=== PATIENT | female | born 1995 | race Caucasian/White ===

== ENCOUNTER 2020-08-09 21:13 | Inpatient (IN) ==
[2020-08-09 21:44] LABS: Appearance Urine Clear (Clear); Bilirubin Urine Negative (Negative); Blood Urine Negative (Negative); Color Urine Yellow; Glucose Urine UA Negative (Negative); Ketones Urine Trace (Negative); Leukocyte Esterase Urine Negative (Negative); Nitrite Urine Positive (Negative); Protein Urine Negative (Negative); Specific Gravity Urine 1.015 (1.000-1.030); Urobilinogen Urine Negative (Negative)
[2020-08-09 21:52] LABS: RBC Urine 0-4 /hpf (0-4)
[2020-08-09 21:53] LABS: Bacteria Urine 3+ (Negative)
[2020-08-09 21:54] LABS: Basophils # (auto) 0.04 K/uL (0-0.2); Basophils % (auto) 0.3 %; Eosinophils # (auto) 0.22 K/uL (0-0.5); Eosinophils % (auto) 1.6 %; Hematocrit (blood only) 40.3 % (37-47); Hemoglobin 13.5 g/dL (12.0-16.0); Immature Granulocytes # (auto) 0.02 K/uL (0.00-0.02); Immature Granulocytes % (auto) 0.1 %; Lymphocytes # (auto) 3.59 K/uL (1.2-3.4); Lymphocytes % (auto) 25.5 %; Mean Corpuscular Hgb Conc 33.5 g/dL (32-36); Mean Corpuscular Volume 86.7 fL (80-100); Mean Platelet Volume 9.9 fL (7.4-10.4); Monocytes # (auto) 0.72 K/uL (0.11-0.59); Monocytes % (auto) 5.1 %; Neutrophils # (auto) 9.47 K/uL (1.4-6.5); Neutrophils % (auto) 67.4 %; Platelet Count 472 K/uL (130-400); RDW Coefficient of Variation 13.6 % (11.5-14.5); RDW Standard Deviation 43.1 fL (36.4-46.3); Red Blood Count 4.65 M/uL (4.2-5.4); White Blood Count 14.06 K/uL (4.8-10.8)
[2020-08-09 22:10] LABS: Amphetamines+Metham, Urine Pos (Neg); Barbiturates, Urine Neg (Neg); Benzodiazepine, Urine Neg (Neg); Cocaine, Urine Neg (Neg); MDMA (Ecstacy), Urine Neg (Neg); Methadone, Urine Neg (Neg); Opiate, Urine Neg (Neg); Phencyclidine, Urine Neg (Neg)
[2020-08-09 22:12] LABS: Albumin Level 3.8 gm/dl (3.4-5.0); BUN Creatinine Ratio 8.2 (10-20); Calcium 9.7 mg/dl (8.5-10.1); Est GFR (African American) 127.2 ml/min; Est GFR (Non-African American) 109.8 ml/min; Potassium 3.9 mmol/L (3.5-5.1)
[2020-08-09] MEDS ORDERED: cephALEXin 250 MG CAP PO ONE (22:16)
[2020-08-09 22:23] LABS: Albumin Globulin Ratio 0.9 (0.9-2); Bilirubin,Total 0.2 mg/dl (0.2-1); Globulin 4.2 gm/dl (2.5-4.0); Thyroid Stimulating Hormone 1.21 uIu/ml (0.300-4.500)
[2020-08-09 22:28] LABS: Acetaminophen < 2 ug/ml (10-30); Salicylate 3.6 mg/dl (2.8-20)
--- NOTE | 2020-08-09 22:33 | Emergency Department Note ---
Impression & Plan Suicidal ideation, Medication overdose, UTI (urinary tract infection) ED Provider Note NAME: DAVID LEIVA AGE: 25 SEX: F : 1995 ARRIVES VIA: Ambulance INFORMANT: [Patient] ED PROVIDER(S): [Rajeev Zaldivar MD] CHIEF COMPLAINT: Intentional overdose HISTORY OF PRESENT ILLNESS: The patient is a 25-year-old female who presents voluntarily after an intentional Risperdal overdose. The patient is on Risperdal for psychosis. She was trying to hurt herself by a taking extra today. She states that she thinks she only took 1 extra tablet. No alcohol or other meds ingested. It made her feel somewhat dizzy and sort of out of it. She has noticed some urinary kyra quency as of late. No burning to urinate. No nausea or vomiting. No chest pain or shortness of breath. The patient states that she feels like she has been more depressed lately. She states that she started using meth again. She basically relapsed. She states that she just found out in her biologic daughter was adopted. She also states she just quit her job. All these stressors have led to her presentation today. She states that she has self cut herself in the past but has never overdosed on medications before. She has had a previous psychiatric hospitalization in [place]. REVIEW OF SYSTEMS: See HPI for pertinent positives and negatives. A total of ten systems were reviewed and were otherwise negative. PMHx/PSHx: See Below SOCIAL HISTORY: See Below. PHYSICAL EXAM: GENERAL: Patient is in no acute distress. HEENT: No acute trauma, normocephalic atraumatic, mucous membranes moist, no nasal congestion, no scleral icterus. NECK: No stridor, no adenopathy, no meningismus, trachea is midline. LUNGS: Clear to auscultation bilaterally, no wheeze, no rhonchi, breath sounds equal. HEART: Mildly tachycardic, regular rhythm, no murmurs. ABDOMEN: Soft, nontender, bowel sounds positive, no hernias, no peritonitis. EXTREMITIES: No cyanosis or edema, full range of motion of all the joints without pain or difficulty, no signs for acute trauma. NEUROLOGIC: Oriented x 3, no acute motor or sensory deficits, no focal weakness. SKIN: No jaundice, no diaphoresis. Psychiatric: Cooperative, voluntary, admits to intentional self-harm today by taking extra Risperdal. DIFFERENTIAL DIAGNOSIS: Mood disorder, infection, hypoglycemia, overdose, electrolyte abnormalities, depression, psychosis, suicidality, cardiac sources, intracerebral event, toxicologic etiology, trauma, neurologic event, as well as other pathologies. EMERGENCY DEPARTMENT COURSE/PROCEDURES: ECG: Indication was overdose and tachycardia. The ECG shows a normal sinus rhythm with a rate of 92. There is no ST elevation, no PVCs. The QTc is 457. MEDICAL DECISION MAKING: There is a mild leukocytosis, this could be consistent with the stress of her situation or possibly infection. There is a normal hemoglobin. Platelet count mildly elevated. No significant electrolyte abnormality or kidney failure. No worrisome liver enzyme elevation. The patient appears to be in a euthyroid state. testing returned negative. Urinalysis does suggest infection. Urine tox showed amphetamines and marijuana. Alcohol, aspirin and Tylenol levels were basically undetectable. Covid testing returned negative. ECG shows a sinus rhythm, no acute ischemia. On exam, the patient was voluntary. She did admit to suicidal ideation. The patient was given oral Keflex for her UTI. This medication can be continued 3 times a day for a week. The UTI should not limit her psychiatric hospitalization. The patient was felt medically clear. She was seen by psychiatry case management. She has been accepted to our hospital's psychiatric facility voluntarily. She is going to be admitted to 3 . The patient has been cooperative during her ED stay, she has been resting comfortably. No behavioral issues. Past Med/Surg History Medical History Deliberate self-cutting Depression Psychosis Social History Smoking Status: Unknown if ever smoked marital status: Single current occupational status: employed Feels Safe at Home: Yes Allergies Allergies Allergy/AdvReac Type Severity Reaction Status Date / Time No Known Allergies Allergy Verified 08/09/20 21:49 Home Meds Home Medications Medication Instructions Recorded Confirmed risperidone [Risperdal] 1 mg PO Q6 PRN 08/09/20 08/09/20 Results & Data (ED) Vital Signs Vital Signs - 24 hr 08/09/20 21:15 08/09/20 21:26 08/10/20 00:26 Temperature 36.9 C Temperature Source Skin Pulse Rate 109 H Pulse Rate [Right Radial] 74 Pulse Rhythm [Right Radial] Regular Pulse Strength [Right Radial] Normal Respiratory Rate 16 16 Respiratory Effort / Characteristics Non-Labored Non-Labored Spontaneous Respiratory Depth Normal Normal Respiratory Pattern Regular Blood Pressure 142/98 H Blood Pressure [Left Arm] 142/98 H Blood Pressure Mean 112 Blood Pressure Mean [Left Arm] 112 Blood Pressure Position [Left Arm] Sitting Pulse Oximetry 97 99 Oxygen Delivery Method Room Air Room Air Room Air Sepsis Recent Fever Within 48 Hours No Sepsis New/Unexplained Change in Mental Status N/A Sepsis Action Taken by Nursing No Action Required Home Medications Current Medication List: was personally reviewed by me Laboratory Data Attestation: I reviewed the patient's lab results. Result diagrams: 08/09/20 21:39 08/09/20 21:39 Lab Results 08/09/20 08/09/20 08/09/20 Range/Units 21:32 21:32 21:32 WBC (4.8-10.8) K/uL RBC (4.2-5.4) M/uL Hgb (12.0-16.0) g/dL Hct (37-47) % MCV (80-100) fL MCH (25-34) pg MCHC (32-36) g/dL RDW Std Deviation (36.4-46.3) fL RDW Coeff of Ismael (11.5-14.5) % Plt Count (130-400) K/uL MPV (7.4-10.4) fL Immature Gran % (Auto) % Neut % (Auto) % Lymph % (Auto) % [place] % (Auto) % Eos % (Auto) % Baso % (Auto) % Neut # (Auto) (1.4-6.5) K/uL Lymph # (Auto) (1.2-3.4) K/uL [place] # (Auto) (0.11-0.59) K/uL Eos # (Auto) (0-0.5) K/uL Baso # (Auto) (0-0.2) K/uL Immature Gran # (Auto) (0.00-0.02) K/uL Sodium (136-145) mmol/L Potassium (3.5-5.1) mmol/L Chloride (98-107) mmol/L Carbon Dioxide (21-32) mmol/L Anion Gap (3-11) BUN (7-18) mg/dl Creatinine (0.6-1.2) mg/dl Est Cr Clr Drug Dosing ml/min Est GFR ( Amer) ml/min Est GFR (Non-Af Amer) ml/min BUN/Creatinine Ratio (10-20) Glucose (70-99) mg/dl Calcium (8.5-10.1) mg/dl Total Bilirubin (0.2-1) mg/dl AST (15-37) U/L ALT (12-78) U/L Alkaline Phosphatase (45-117) U/L Total Protein (6.4-8.2) gm/dl Albumin (3.4-5.0) gm/dl Globulin (2.5-4.0) gm/dl Albumin/Globulin Ratio (0.9-2) TSH (0.300-4.500) uIu/ml Urine Color Yellow Urine Appearance Clear (Clear) Urine pH 7.0 (4.5-7.5) Ur Specific [place] 1.015 (1.000-1.030) Urine Protein Negative (Negative) Urine Glucose (UA) Negative (Negative) Urine Ketones Trace H (Negative) Urine Blood Negative (Negative) Urine Nitrite Positive A (Negative) Urine Bilirubin Negative (Negative) Urine Urobilinogen Negative (Negative) Ur Leukocyte Esterase Negative (Negative) Urine RBC 0-4 (0-4) /hpf Urine WBC 5-10 H (0-5) /hpf Ur Epithelial Cells 5-10 H (0-5) /lpf Urine Bacteria 3+ H (Negative) POC Ur Test NEG (NEG) Salicylates (2.8-20) mg/dl Urine Opiates Screen Neg (Neg) Ur Methadone, Qual Neg (Neg) Acetaminophen (10-30) ug/ml Urine Barbiturates Neg (Neg) Ur Phencyclidine (PCP) Neg (Neg) U Amphetamin/Meth Scrn Pos H (Neg) MDMA (Ecstasy) Screen Neg (Neg) U Benzodiazepines Scrn Neg (Neg) Ur Cocaine Metabolite Neg (Neg) U Marijuana (THC) Screen Pos H (Neg) Ethyl Alcohol mg/dL (0-3) mg/dl COVID-19 Eval Order SARS-CoV-2, RNA, NAAT (NEGATIVE) 08/09/20 08/09/20 08/09/20 Range/Units 21:39 21:39 21:39 WBC 14.06 H (4.8-10.8) K/uL RBC 4.65 (4.2-5.4) M/uL Hgb 13.5 (12.0-16.0) g/dL Hct 40.3 (37-47) % MCV 86.7 (80-100) fL MCH 29.0 (25-34) pg MCHC 33.5 (32-36) g/dL RDW Std Deviation 43.1 (36.4-46.3) fL RDW Coeff of Ismael 13.6 (11.5-14.5) % Plt Count 472 H (130-400) K/uL MPV 9.9 (7.4-10.4) fL Immature Gran % (Auto) 0.1 % Neut % (Auto) 67.4 % Lymph % (Auto) 25.5 % [place] % (Auto) 5.1 % Eos % (Auto) 1.6 % Baso % (Auto) 0.3 % Neut # (Auto) 9.47 H (1.4-6.5) K/uL Lymph # (Auto) 3.59 H (1.2-3.4) K/uL [place] # (Auto) 0.72 H (0.11-0.59) K/uL Eos # (Auto) 0.22 (0-0.5) K/uL Baso # (Auto) 0.04 (0-0.2) K/uL Immature Gran # (Auto) 0.02 (0.00-0.02) K/uL Sodium 139 (136-145) mmol/L Potassium 3.9 (3.5-5.1) mmol/L Chloride 106 (98-107) mmol/L Carbon Dioxide 28 (21-32) mmol/L Anion Gap 5.0 (3-11) BUN 6 L (7-18) mg/dl Creatinine 0.76 (0.6-1.2) mg/dl Est Cr Clr Drug Dosing 118.0 ml/min Est GFR ( Amer) 127.2 ml/min Est GFR (Non-Af Amer) 109.8 ml/min BUN/Creatinine Ratio 8.2 L (10-20) Glucose 96 (70-99) mg/dl Calcium 9.7 (8.5-10.1) mg/dl Total Bilirubin 0.2 (0.2-1) mg/dl AST 8 L (15-37) U/L ALT 23 (12-78) U/L Alkaline Phosphatase 94 (45-117) U/L Total Protein 8.0 (6.4-8.2) gm/dl Albumin 3.8 (3.4-5.0) gm/dl Globulin 4.2 H (2.5-4.0) gm/dl Albumin/Globulin Ratio 0.9 (0.9-2) TSH 1.210 (0.300-4.500) uIu/ml Urine Color Urine Appearance (Clear) Urine pH (4.5-7.5) Ur Specific [place] (1.000-1.030) Urine Protein (Negative) Urine Glucose (UA) (Negative) Urine Ketones (Negative) Urine Blood (Negative) Urine Nitrite (Negative) Urine Bilirubin (Negative) Urine Urobilinogen (Negative) Ur Leukocyte Esterase (Negative) Urine RBC (0-4) /hpf Urine WBC (0-5) /hpf Ur Epithelial Cells (0-5) /lpf Urine Bacteria (Negative) POC Ur Test (NEG) Salicylates 3.6 (2.8-20) mg/dl Urine Opiates Screen (Neg) Ur Methadone, Qual (Neg) Acetaminophen < 2 L (10-30) ug/ml Urine Barbiturates (Neg) Ur Phencyclidine (PCP) (Neg) U Amphetamin/Meth Scrn (Neg) MDMA (Ecstasy) Screen (Neg) U Benzodiazepines Scrn (Neg) Ur Cocaine Metabolite (Neg) U Marijuana (THC) Screen (Neg) Ethyl Alcohol mg/dL (0-3) mg/dl COVID-19 Eval Order SARS-CoV-2, RNA, NAAT (NEGATIVE) 08/09/20 08/09/20 08/09/20 Range/Units 21:39 21:40 21:40 WBC (4.8-10.8) K/uL RBC (4.2-5.4) M/uL Hgb (12.0-16.0) g/dL Hct (37-47) % MCV (80-100) fL MCH (25-34) pg MCHC (32-36) g/dL RDW Std Deviation (36.4-46.3) fL RDW Coeff of Ismael (11.5-14.5) % Plt Count (130-400) K/uL MPV (7.4-10.4) fL Immature Gran % (Auto) % Neut % (Auto) % Lymph % (Auto) % [place] % (Auto) % Eos % (Auto) % Baso % (Auto) % Neut # (Auto) (1.4-6.5) K/uL Lymph # (Auto) (1.2-3.4) K/uL [place] # (Auto) (0.11-0.59) K/uL Eos # (Auto) (0-0.5) K/uL Baso # (Auto) (0-0.2) K/uL Immature Gran # (Auto) (0.00-0.02) K/uL Sodium (136-145) mmol/L Potassium (3.5-5.1) mmol/L Chloride (98-107) mmol/L Carbon Dioxide (21-32) mmol/L Anion Gap (3-11) BUN (7-18) mg/dl Creatinine (0.6-1.2) mg/dl Est Cr Clr Drug Dosing ml/min Est GFR ( Amer) ml/min Est GFR (Non-Af Amer) ml/min BUN/Creatinine Ratio (10-20) Glucose (70-99) mg/dl Calcium (8.5-10.1) mg/dl Total Bilirubin (0.2-1) mg/dl AST (15-37) U/L ALT (12-78) U/L Alkaline Phosphatase (45-117) U/L Total Protein (6.4-8.2) gm/dl Albumin (3.4-5.0) gm/dl Globulin (2.5-4.0) gm/dl Albumin/Globulin Ratio (0.9-2) TSH (0.300-4.500) uIu/ml Urine Color Urine Appearance (Clear) Urine pH (4.5-7.5) Ur Specific [place] (1.000-1.030) Urine Protein (Negative) Urine Glucose (UA) (Negative) Urine Ketones (Negative) Urine Blood (Negative) Urine Nitrite (Negative) Urine Bilirubin (Negative) Urine Urobilinogen (Negative) Ur Leukocyte Esterase (Negative) Urine RBC (0-4) /hpf Urine WBC (0-5) /hpf Ur Epithelial Cells (0-5) /lpf Urine Bacteria (Negative) POC Ur Test (NEG) Salicylates (2.8-20) mg/dl Urine Opiates Screen (Neg) Ur Methadone, Qual (Neg) Acetaminophen (10-30) ug/ml Urine Barbiturates (Neg) Ur Phencyclidine (PCP) (Neg) U Amphetamin/Meth Scrn (Neg) MDMA (Ecstasy) Screen (Neg) U Benzodiazepines Scrn (Neg) Ur Cocaine Metabolite (Neg) U Marijuana (THC) Screen (Neg) Ethyl Alcohol mg/dL < 3.0 (0-3) mg/dl COVID-19 Eval Order Covid19 [facility] SARS-CoV-2, RNA, NAAT NEGATIVE (NEGATIVE) Administered Medications Discontinued Medications Cephalexin HCl (Cephalexin 250 Mg Cap) 500 mg PO NOW ONE Stop: 08/09/20 22:17 Last Admin: 08/09/20 22:35 Dose: 500 mg Documented by: [id number] Discharge Plan Visit Data Chief Complaint: Overdose (Intentional) Stated Complaint: DIZZINESS, EDEMA IN LEGS ED Provider: Rajeev Zaldivar Discharge Problem: Suicidal ideation, Medication overdose, UTI (urinary tract infection) Patient Disposition: Admitted As Inpatient Condition: Good Forms Stand Alone Forms: [facility], Suicide Prevention Resources Prescriptions Prescriptions: No Action risperidone [Risperdal] 1 mg Tablet 1 mg PO Q6 PRN (Reason: Anxiety) RF: 0 Referrals Referrals: PCP,NO [Primary Care Provider] - Discharge Problem: Medication overdose Qualifiers: Encounter type: initial encounter Injury intent: intentional self-harm Qualified Code(s): T50.902A - Poisoning by unspecified drugs, medicaments and biological substances, intentional self-harm, initial encounter UTI (urinary tract infection) Qualifiers: Urinary tract infection type: acute cystitis Hematuria presence: without hematuria Qualified Code(s): N30.00 - Acute cystitis without hematuria
[2020-08-10] MEDS ORDERED: BISMUTH SUBSALICYLATE LIQD 236 ML PO PRN (01:54)
[2020-08-10] MEDS ORDERED: MAGNESIUM HYDROXIDE SUSP 30 ML UDC PO PRN (01:54)
[2020-08-10] MEDS ORDERED: ALUMINUM/MAGNESIUM SUSP 30 ML UDC PO PRN (01:54)
[2020-08-10] MEDS ORDERED: hydrOXYzine HCl 25 MG TAB PO PRN ×3 (01:54→13:11)
[2020-08-10] MEDS ORDERED: SODIUM CHLORIDE 0.65% NA SOLN 45 ML (OCEAN) PRN (01:54)
[2020-08-10] MEDS: ACETAMINOPHEN 325 MG TAB PO PRN (02:46)
[2020-08-10] MEDS: NICOTINE 21 MG/24 HR TDSY TD SCH (08:29)
--- NOTE | 2020-08-10 12:34 | History & Physical ---
Date of Service August 10, 2020 Impression / Recommendations Impression DAVID LEIVA is a 25-year-old F who currently lives in is currently homeless, with a significant history of methamphetamine abuse, cannabis use and depression, and was admitted on 08/10/20 01:11 on a 201 voluntary commitment for worsening depression with suicidal thoughts, anxiety significant panic as well as status post intentional overdose on Risperdal.. On review patient denies any associated suicide attempts. Current impression is mood disorder unspecified patient is probably stress secondary to multiple psychosocial stressors and consistent use of methamphetamine as well as cannabinoids. Patient also reports difficulty with sleep and patient reports that Lexapro helped her in the past. At this time the patient is admitted to the [address] [place] [address] mental health unit she is on every 15 minute checks behavior and suicide precautions included for safety the patient will participate in groups recreational milieu therapies will be offered additional in individual and family sessions as cl inically appropriate. (1) Suicidal ideation: Resolved patient denies suicidal ideation here on the unit. Present on Admission?: Yes (2) Major depression, recurrent: Unclear if patient has depression secondary to substance use but has a history of depression in the past and reports benefit from Lexapro we will restart Lexapro discussed benefits as well as risks and side effects of antidepressant such as serotonin reuptake inhibitors. We will start her milligrams of Lexapro daily Present on Admission?: Yes (3) Anxiety: She reported taking the Risperdal in response to significant panic attack which she had prior to admission patient reports a long history of anxiety but denies any panic attacks and severe as the one she had the other day". Will start Vistaril 25 mg as needed 3 times daily will have 50 mg at nighttime will avoid anything stronger given patient's history of addictions patient reports BuSpar in the past unclear if it will be beneficial at this time. Present on Admission?: Yes (4) Methamphetamine dependence, continuous: Patient has a significant history of methamphetamine use continues patient reports this is my favorite and I do not do enough" patient is open to going to rehab the patient's use history suggest problematic substance use brief intervention was offered and accepted intervention was greater than 5 minutes in length and included assessing patient's readiness to quit advised on how to reduce abstain and to set a specific goal for this hospitalization director social welfare with medical assistant instructor anticipating barriers to sobriety and problem solving solutions to those problems while arranging for referral to appropriate treatment. Present on Admission?: Yes Inventory Assets Strengths: verbal, open to treatment Needs: Rehab Risk Factors Assessment Male: No Do You Have Access To A Gun?: No Health Problems: No Mental Health Diagnoses: Yes Protective Factors Assessment Employed: No Good Rapport with Provider: Yes Psychiatric History Identifying Data DAVID LEIVA is a 25-year-old F who currently lives in is currently homeless, with a significant history of methamphetamine abuse, cannabis use and depression, and was admitted on 08/10/20 01:11 on a 201 voluntary commitment for worsening depression with suicidal thoughts, anxiety significant panic as well as status post intentional overdose on Risperdal.. Chief Complaint "I had a horrible panic attack I never want to have that kind of panic attack again". History of Present Illness The patient is a 25-year-old female who presents voluntarily after an intentional Risperdal overdose. The patient is on Risperdal for psychosis. She was trying to hurt herself by a taking extra today. She states that she thinks she only took 1 extra tablet. No alcohol or other meds ingested. It made her feel somewhat dizzy and sort of out of it. Patient reported immediately she took it regretting the episode. Patient admitted to property underwriter that it was an old prescription and the last time he had been prescribed Risperdal was in October 2019. She this was at the time she [facility]. Then she has not sought psychiatric services. Ported worsening anxiety in the past several months especially more intense in the past 2 weeks with her current situation of homelessness moving from one house to the other" patient decided to fill all prescription and was taking the medication as needed however she reported having a severe panic attack and intentionally took more than 1 pill to help with the panic attack. She then felt dizzy and out of sorts" Patient was interviewed by case management in the ED the following history noted below was obtained; Per Case Management ED Psych by Fransico Ramirez Met with the patient to complete MH Brief Assessment. The patient reports she recently moved in with her father after losing her job. The patient reports she took extra Risperdal (2 at a time instead of as prescribed) to try to sleep but I really didnt want to wake up. The patient reports she doesnt want to but doesnt want things to continue. The patient reports she had a really bad anxiety attack after finding out her daughter was adopted recently and her birthday is coming up in August. The patient reports she is a meth user (last used last night) and needs help for her mental health and addiction. The patient admits she was trying to hurt herself when she took her extra Risperdal. The patient reports she was inpatient in [place] and diagnosed with psychotic disorder, depression and anxiety, but she feels she has major depression. Medical clearance explained. When this property underwriter met with patient today she reported feeling depressed and hopeless, she denied active suicidal ideation in the hospital was not sure what she would do if she left. She reported ongoing use of methamphetamine and cannabis." I do not get as much as I can use" patient reported also being anxious to go back into rehab." I need to get stable and, my own place and my own car, I need a job" Patient denies hallucinations denies homicidal ideation no evidence of response to internal stimuli. Past Psychiatric History Previous Psych History: Multiple past psychiatric admissions including [facility] 2019 she also was admitted to [facility] in September 2019 Current Psychiatric Diagnosis: depression and anxiety Previous Psych Admissions: As noted above Do You Have Access To A Gun?: No History of Previous Suicide Attempt: No Past Medication Trials: Respiratory Lexapro trazodone Past Head Trauma/Neuro History History of Concussion/Seizure: No Allergies Allergy/AdvReac Type Severity Reaction Status Date / Time No Known Allergies Allergy Verified 08/09/20 21:49 Family History Family History of: Depression and Alcoholism/Drug Abuse Alcohol History Hx of Alcohol Use Over the Past 12 Months: Yes (occcasional, last use May 2020) AUDIT Total Score: 7 Smoking Use Have You Smoked or Used Tobacco Products in the Last 30 Days: Yes tobacco type: cigarettes Smoking Status: Current every day smoker Smoking packs per day: 1.5 Substance History Hx of Prescription Med Misuse Over the Past 12 Months: Yes (OD attempt on old script of Risperdal) Hx of Over the Counter Med Misuse Over the Past 12 Months: No Hx of Inhalent Misuse Over the Past 12 Months: No Hx of Organic Substance Use Over the Past 12 Months: Yes (MJ - "as much as I can, when I have money", used 08/09) Hx of Illegal Substances/Street Drug Use Over Past 12 Months: Yes (Meth - "mostly on the weekends, when I can afford it", used last 08/08) Problems as a Result of Past Substance Use: Loss of Family Support Personal History Living Arrangements: Homeless Highest Grade Completed: Did Not Graduate High School Employment Status: Unemployed Beliefs That Will Affect Care: None Current Legal Problems: No Patient History Medical History Deliberate self-cutting Depression Psychosis Social History Smoking Status: Current every day smoker Preferred Language: Chinese Communication Ability: Effective Php Mysql Web Developer Required: No Beliefs That Will Affect Care: None marital status: Single current occupational status: employed Feels Safe at Home: Yes Assistive Devices: None Review of Systems Review of Systems: All systems reviewed & are unremarkable except as noted in Subjective Physical Exam Psychiatric: Orientation: alert, oriented x 3, oriented to person, oriented to place and cooperative Apperance: appropriately dressed Eye Contact: good eye contact Motor Behavior: steady gait and station Speech: normal rate/rhythm/volume of speech Affect: + anxious affect Mood: + anxious mood Thought Process: goal directed thought process and clear/coherent thought process; no flight of ideas Thought Content: not paranoid, no compulsions and no delusions Suicidal Thoughts: denies suicidal thoughts Homicidal Thoughts: denies homicidal thoughts Hallucinations: no auditory hallucinations and no visual hallucinations Cognition: recent memory grossly intact, remote memory grossly intact, attention grossly intact and language grossly intact Estimated Intelligence: consistent with education level Insight: + limited insight Judgement: + limited judgement Vital Signs (Past 24 Hours): Last Vital Signs Temp 36.5 C 08/10/20 06:44 Pulse 81 08/10/20 06:45 Resp 16 08/10/20 06:44 BP 120/86 08/10/20 06:45 Pulse Ox 99 08/10/20 01:57 Physical Examination: Physical exam was performed by Dr. Zaldivar in the ED on 08/09/2020. For the purpose of medical clearance accepting the physical exam as correct and adequate for the purpose of the inpatient physical exam. Results & Data (U) Laboratory Results Laboratory Results - last 24 hr 08/09/20 08/09/20 08/09/20 21:32 21:32 21:32 WBC RBC Hgb Hct MCV MCH MCHC RDW Std Deviation RDW Coeff of Ismael Plt Count MPV Immature Gran % (Auto) Neut % (Auto) Lymph % (Auto) Jack % (Auto) Eos % (Auto) Baso % (Auto) Neut # (Auto) Lymph # (Auto) Jack # (Auto) Eos # (Auto) Baso # (Auto) Immature Gran # (Auto) Sodium Potassium Chloride Carbon Dioxide Anion Gap BUN Creatinine Est Cr Clr Drug Dosing Est GFR ( Amer) Est GFR (Non-Af Amer) BUN/Creatinine Ratio Glucose Calcium Total Bilirubin AST ALT Alkaline Phosphatase Total Protein Albumin Globulin Albumin/Globulin Ratio TSH Urine Color Yellow Urine Appearance Clear Urine pH 7.0 Ur Specific Floral 1.015 Urine Protein Negative Urine Glucose (UA) Negative Urine Ketones Trace H Urine Blood Negative Urine Nitrite Positive A Urine Bilirubin Negative Urine Urobilinogen Negative Ur Leukocyte Esterase Negative Urine RBC 0-4 Urine WBC 5-10 H Ur Epithelial Cells 5-10 H Urine Bacteria 3+ H POC Ur Test NEG Salicylates Urine Opiates Screen Neg Ur Methadone, Qual Neg Acetaminophen Urine Barbiturates Neg Ur Phencyclidine (PCP) Neg U Amphetamines Confirm U Amphetamin/Meth Scrn Pos H U Methamphetamin Confrm MDMA (Ecstasy) Screen Neg U Benzodiazepines Scrn Neg Ur Cocaine Metabolite Neg U Marijuana (THC) Screen Pos H U Marijuana THC Carboxy Drug Screen Comment Ethyl Alcohol mg/dL COVID-19 Eval Order SARS-CoV-2, RNA, NAAT 08/09/20 08/09/20 08/09/20 21:32 21:39 21:39 WBC 14.06 H RBC 4.65 Hgb 13.5 Hct 40.3 MCV 86.7 MCH 29.0 MCHC 33.5 RDW Std Deviation 43.1 RDW Coeff of Ismael 13.6 Plt Count 472 H MPV 9.9 Immature Gran % (Auto) 0.1 Neut % (Auto) 67.4 Lymph % (Auto) 25.5 Jack % (Auto) 5.1 Eos % (Auto) 1.6 Baso % (Auto) 0.3 Neut # (Auto) 9.47 H Lymph # (Auto) 3.59 H Jack # (Auto) 0.72 H Eos # (Auto) 0.22 Baso # (Auto) 0.04 Immature Gran # (Auto) 0.02 Sodium 139 Potassium 3.9 Chloride 106 Carbon Dioxide 28 Anion Gap 5.0 BUN 6 L Creatinine 0.76 Est Cr Clr Drug Dosing 118.0 Est GFR ( Amer) 127.2 Est GFR (Non-Af Amer) 109.8 BUN/Creatinine Ratio 8.2 L Glucose 96 Calcium 9.7 Total Bilirubin 0.2 AST 8 L ALT 23 Alkaline Phosphatase 94 Total Protein 8.0 Albumin 3.8 Globulin 4.2 H Albumin/Globulin Ratio 0.9 TSH 1.210 Urine Color Urine Appearance Urine pH Ur Specific Floral Urine Protein Urine Glucose (UA) Urine Ketones Urine Blood Urine Nitrite Urine Bilirubin Urine Urobilinogen Ur Leukocyte Esterase Urine RBC Urine WBC Ur Epithelial Cells Urine Bacteria POC Ur Test Salicylates Urine Opiates Screen Ur Methadone, Qual Acetaminophen Urine Barbiturates Ur Phencyclidine (PCP) U Amphetamines Confirm Pending U Amphetamin/Meth Scrn U Methamphetamin Confrm Pending MDMA (Ecstasy) Screen U Benzodiazepines Scrn Ur Cocaine Metabolite U Marijuana (THC) Screen U Marijuana THC Carboxy Pending Drug Screen Comment Pending Ethyl Alcohol mg/dL COVID-19 Eval Order SARS-CoV-2, RNA, NAAT 08/09/20 08/09/20 08/09/20 21:39 21:39 21:40 WBC RBC Hgb Hct MCV MCH MCHC RDW Std Deviation RDW Coeff of Ismael Plt Count MPV Immature Gran % (Auto) Neut % (Auto) Lymph % (Auto) Jack % (Auto) Eos % (Auto) Baso % (Auto) Neut # (Auto) Lymph # (Auto) Jack # (Auto) Eos # (Auto) Baso # (Auto) Immature Gran # (Auto) Sodium Potassium Chloride Carbon Dioxide Anion Gap BUN Creatinine Est Cr Clr Drug Dosing Est GFR ( Amer) Est GFR (Non-Af Amer) BUN/Creatinine Ratio Glucose Calcium Total Bilirubin AST ALT Alkaline Phosphatase Total Protein Albumin Globulin Albumin/Globulin Ratio TSH Urine Color Urine Appearance Urine pH Ur Specific Floral Urine Protein Urine Glucose (UA) Urine Ketones Urine Blood Urine Nitrite Urine Bilirubin Urine Urobilinogen Ur Leukocyte Esterase Urine RBC Urine WBC Ur Epithelial Cells Urine Bacteria POC Ur Test Salicylates 3.6 Urine Opiates Screen Ur Methadone, Qual Acetaminophen < 2 L Urine Barbiturates Ur Phencyclidine (PCP) U Amphetamines Confirm U Amphetamin/Meth Scrn U Methamphetamin Confrm MDMA (Ecstasy) Screen U Benzodiazepines Scrn Ur Cocaine Metabolite U Marijuana (THC) Screen U Marijuana THC Carboxy Drug Screen Comment Ethyl Alcohol mg/dL < 3.0 COVID-19 Eval [facility] SARS-CoV-2, RNA, NAAT 08/09/20 21:40 WBC RBC Hgb Hct MCV MCH MCHC RDW Std Deviation RDW Coeff of Ismael Plt Count MPV Immature Gran % (Auto) Neut % (Auto) Lymph % (Auto) Jack % (Auto) Eos % (Auto) Baso % (Auto) Neut # (Auto) Lymph # (Auto) Jack # (Auto) Eos # (Auto) Baso # (Auto) Immature Gran # (Auto) Sodium Potassium Chloride Carbon Dioxide Anion Gap BUN Creatinine Est Cr Clr Drug Dosing Est GFR ( Amer) Est GFR (Non-Af Amer) BUN/Creatinine Ratio Glucose Calcium Total Bilirubin AST ALT Alkaline Phosphatase Total Protein Albumin Globulin Albumin/Globulin Ratio TSH Urine Color Urine Appearance Urine pH Ur Specific Floral Urine Protein Urine Glucose (UA) Urine Ketones Urine Blood Urine Nitrite Urine Bilirubin Urine Urobilinogen Ur Leukocyte Esterase Urine RBC Urine WBC Ur Epithelial Cells Urine Bacteria POC Ur Test Salicylates Urine Opiates Screen Ur Methadone, Qual Acetaminophen Urine Barbiturates Ur Phencyclidine (PCP) U Amphetamines Confirm U Amphetamin/Meth Scrn U Methamphetamin Confrm MDMA (Ecstasy) Screen U Benzodiazepines Scrn Ur Cocaine Metabolite U Marijuana (THC) Screen U Marijuana THC Carboxy Drug Screen Comment Ethyl Alcohol mg/dL COVID-19 Eval Order SARS-CoV-2, RNA, NAAT NEGATIVE Current Inpatient Medications Current Inpatient Medications: Current Inpatient Medications Acetaminophen (Acetaminophen 325 Mg Tab) 650 mg PO Q4H PRN PRN Reason: Headache or Minor Fever Stop: 09/09/20 01:53 Last Admin: 08/10/20 02:46 Dose: 650 mg Documented by: Al Hydrox/Mg Hydrox/Simethicone (Aluminum/Magnesium Susp 30 Ml Udc) 30 ml PO Q4H PRN PRN Reason: GI Upset Stop: 09/09/20 01:53 Bismuth Subsalicylate (Bismuth Subsalicylate Liqd 236 Ml) 15 ml PO PRN PRN PRN Reason: Loose Stool Stop: 09/09/20 01:53 Hydroxyzine HCl (Hydroxyzine Hcl 25 Mg Tab) 50 mg PO HSZ PRN PRN Reason: Insomnia Stop: 09/09/20 01:53 Last Admin: 08/10/20 02:46 Dose: 50 mg Documented by: Hydroxyzine HCl (Hydroxyzine Hcl 25 Mg Tab) 25 mg PO Q4H PRN PRN Reason: Anxiety Stop: 09/09/20 01:53 Magnesium Hydroxide (Magnesium Hydroxide Susp 30 Ml Udc) 30 ml PO DAILY PRN PRN Reason: Constipation Stop: 09/09/20 01:53 Miscellaneous (Remove Nicoderm Patch) 1 ea N/A DAILY@[id number] [facility] Stop: 09/09/20 08:58 Last Admin: 08/10/20 08:30 Dose: Not Given Documented by: Nicotine (Nicotine 21 Mg/24 Hr Tdsy) 21 mg TD QAM [facility] Stop: 09/09/20 08:59 Last Admin: 08/10/20 08:29 Dose: 21 mg Documented by: Sodium Chloride (Sodium Chloride 0.65% Na Soln 45 Ml ([employer])) 1 - 2 sprays NA PRN PRN PRN Reason: Nasal Dryness/Congestion Stop: 09/09/20 01:53
--- NOTE | 2020-08-10 12:49 | Electrocardiogram Report ---
Test Reason : Blood Pressure : / mmHG Vent. Rate : 092 BPM Atrial Rate : 092 BPM P-R Int : 162 ms QRS Dur : 084 ms QT Int : 370 ms P-R-T Axes : 060 049 024 degrees QTc Int : 457 ms Normal sinus rhythm Possible Left atrial enlargement Borderline ECG No previous ECGs available Confirmed by Peng Reese ([id number] on 08/10/2020 12:49:23 PM Referred By: REFERRED SELF Confirmed By:Trenton Reese
[2020-08-10] MEDS: hydrOXYzine HCl 25 MG TAB PO SCH (21:19)
[2020-08-10] MEDS: traZODone HCL 50 MG TAB PO SCH (21:19)
[2020-08-11] MEDS: NICOTINE 21 MG/24 HR TDSY TD SCH (08:53)
[2020-08-11] MEDS: ESCITALOPRAM OXALATE 10 MG TAB PO SCH (08:53)
[2020-08-11] MEDS: cephALEXin 500 MG CAP PO SCH ×2 (14:09→21:12)
--- NOTE | 2020-08-11 17:53 | Psychiatric Progress Note ---
Date of Service August 11, 2020 Impression / Recommendations Impression 08/11/20-patient is doing better denies any suicidal thoughts denies homicidal thoughts we will continue to monitor for any withdrawal symptoms. Patient is agreeable to current medication. Keflex was started for UTI 08/10/20- DAVID LEIVA is a 25-year-old F who currently lives in is currently homeless, with a significant history of methamphetamine abuse, cannabis use and depression, and was admitted on 08/10/20 01:11 on a 201 voluntary commitment for worsening depression with suicidal thoughts, anxiety significant panic as well as status post intentional overdose on Risperdal.. On review patient denies any associated suicide attempts. Current impression is mood disorder unspecified patient is probably stress secondary to multiple psychosocial stressors and consistent use of methamphetamine as well as cannabinoids. Patient also reports difficulty with sleep and patient reports that Lexapro helped her in the past. At this time the patient is admitted to the [address] [place] [address] inpatient mental health unit she is on every 15 minute checks behavior and suicide precautions included for safety the patient will participate in groups recreational milieu therapies will be offered additional in individual and family sessions as clinically appropriate. (1) Suicidal ideation: Resolved patient denies suicidal ideation here on the unit. (2) Major depression, recurrent: Unclear if patient has depression secondary to substance use but has a history of depression in the past and reports benefit from Lexapro we will restart Lexapro discussed benefits as well as risks and side effects of antidepressant such as serotonin reuptake inhibitors. We will start her milligrams of Lexapro daily (3) Anxiety: She reported taking the Risperdal in response to significant panic attack which she had prior to admission patient reports a long history of anxiety but denies any panic attacks and severe as the one she had the other day". Will start Vistaril 25 mg as needed 3 times daily will have 50 mg at nighttime will avoid anything stronger given patient's history of addictions patient reports BuSpar in the past unclear if it will be beneficial at this time. (4) Methamphetamine dependence, continuous: Patient has a significant history of methamphetamine use continues patient reports this is my favorite and I do not do enough" patient is open to going to rehab the patient's use history suggest problematic substance use brief intervention was offered and accepted intervention was greater than 5 minutes in length and included assessing patient's readiness to quit advised on how to reduce abstain and to set a specific goal for this hospitalization director social welfare with ophthalmic surgical assistant anticipating barriers to sobriety and problem solving solutions to those problems while arranging for referral to appropriate treatment. Inventory Assets Strengths: verbal, open to treatment Needs: Rehab Risk Factors Assessment Male: No Do You Have Access To A Gun?: No Health Problems: No Mental Health Diagnoses: Yes Protective Factors Assessment Employed: No Good Rapport with Provider: Yes Interval History Chief Complaint "[I am doing better thank you for asking"]". Review of Systems Sleep Information Total Hours of Sleep: 8 Sleep Comments: admitted this shift. Meal Information Percent Meal Consumed - Breakfast: 100 Percent Meal Consumed - Lunch: 80 Percent Meal Consumed - Dinner: 60 Subjective Subjective Patient was seen & assessed and interval progress reviewed with treatment team nursing and social work dissipating in groups and milieu activities denies side effects to her current medications denies any withdrawal. Patient does report urinary tract symptoms had initially been started on Keflex in the ED which was discontinued after 1 dose. Patient denies suicidal thoughts homicidal thoughts no evidence of hallucinations denies auditory and visual. Physical Exam Psychiatric Orientation: alert, oriented x 3, oriented to person, oriented to place and cooperative Apperance: appropriately dressed Eye Contact: good eye contact Motor Behavior: steady gait and station Speech: normal rate/rhythm/volume of speech Affect: + anxious affect Mood: + anxious mood Thought Process: goal directed thought process and clear/coherent thought process; no flight of ideas Thought Content: not paranoid, no compulsions and no delusions Suicidal Thoughts: denies suicidal thoughts Homicidal Thoughts: denies homicidal thoughts Hallucinations: no auditory hallucinations and no visual hallucinations Cognition: recent memory grossly intact, remote memory grossly intact, attention grossly intact and language grossly intact Estimated Intelligence: consistent with education level Insight: + limited insight Judgement: + limited judgement Vital Signs (Past 24 Hours) Last Vital Signs Temp 36.6 C 08/11/20 06:00 Pulse 91 H 08/11/20 06:53 Resp 16 08/11/20 06:00 BP 89/56 L 08/11/20 06:53 Pulse Ox 99 08/10/20 01:57 Physical exam was performed by Dr. Zaldivar in the ED on 08/09/2020. For the purpose of medical clearance accepting the physical exam as correct and adequate for the purpose of the inpatient physical exam. Results & Data ([facility]) Current Inpatient Medications Current Inpatient Medications: Current Inpatient Medications Acetaminophen (Acetaminophen 325 Mg Tab) 650 mg PO Q4H PRN PRN Reason: Headache or Minor Fever Stop: 09/09/20 01:53 Last Admin: 08/10/20 02:46 Dose: 650 mg Documented by: Al Hydrox/Mg Hydrox/Simethicone (Aluminum/Magnesium Susp 30 Ml Udc) 30 ml PO Q4H PRN PRN Reason: GI Upset Stop: 09/09/20 01:53 Bismuth Subsalicylate (Bismuth Subsalicylate Liqd 236 Ml) 15 ml PO PRN PRN PRN Reason: Loose Stool Stop: 09/09/20 01:53 Cephalexin HCl (Cephalexin 500 Mg Cap) 500 mg PO BID [facility] Stop: 08/16/20 13:14 Last Admin: 08/11/20 14:09 Dose: 500 mg Documented by: Escitalopram Oxalate (Escitalopram Oxalate 10 Mg Tab) 10 mg PO QAM [facility] Stop: 09/10/20 08:59 Last Admin: 08/11/20 08:53 Dose: 10 mg Documented by: Hydroxyzine HCl (Hydroxyzine Hcl 25 Mg Tab) 25 mg PO Q4H PRN PRN Reason: Anxiety Stop: 09/09/20 01:53 Hydroxyzine HCl (Hydroxyzine Hcl 25 Mg Tab) 50 mg PO HS [facility] Stop: 09/09/20 21:59 Last Admin: 08/10/20 21:19 Dose: 50 mg Documented by: Magnesium Hydroxide (Magnesium Hydroxide Susp 30 Ml Udc) 30 ml PO DAILY PRN PRN Reason: Constipation Stop: 09/09/20 01:53 Miscellaneous (Remove Nicoderm Patch) 1 ea N/A DAILY@0859 [facility] Stop: 09/09/20 08:58 Last Admin: 08/11/20 08:53 Dose: Not Given Documented by: Nicotine (Nicotine 21 Mg/24 Hr Tdsy) 21 mg TD QAM [facility] Stop: 09/09/20 08:59 Last Admin: 08/11/20 08:53 Dose: 21 mg Documented by: Sodium Chloride (Sodium Chloride 0.65% Na Soln 45 Ml ([place])) 1 - 2 sprays NA PRN PRN PRN Reason: Nasal Dryness/Congestion Stop: 06/18/21 01:53 Trazodone HCl (Trazodone Hcl 50 Mg Tab) 50 mg PO HS GARY Stop: 09/09/20 21:59 Last Admin: 08/10/20 21:19 Dose: 50 mg Documented by: Mental Health & Subst Abuse Tx Therapist Name of Therapist: none Post Discharge Appointments Primary Care Physician Name Of Family Doctor: none
[2020-08-11] MEDS: hydrOXYzine HCl 25 MG TAB PO SCH (21:12)
[2020-08-11] MEDS: traZODone HCL 50 MG TAB PO SCH (21:12)
[2020-08-12 05:31] LABS: Amphetamine Urine, Confirm 665 ng/mL (<250); Marijuana Quant, GCMS Urine 91 ng/mL (<5); Methamphetamine, Ur Confirm 5620 ng/mL (<250)
[2020-08-12] MEDS: ESCITALOPRAM OXALATE 10 MG TAB PO SCH (09:11)
[2020-08-12] MEDS: cephALEXin 500 MG CAP PO SCH ×2 (09:11→20:50)
[2020-08-12] MEDS: NICOTINE 21 MG/24 HR TDSY TD SCH (09:14)
[2020-08-12] MEDS: ACETAMINOPHEN 325 MG TAB PO PRN ×2 (11:00→20:33)
--- NOTE | 2020-08-12 16:12 | Psychiatric Progress Note ---
Date of Service August 12, 2020 Impression / Recommendations Impression 08/12/2020-she continues to improve is able to be more accepting of the fact that she does require rehab she is open to rehab she denies any suicidal ideation or homicidal ideation the goal for treatment is to transition patient to rehabilitation to enable her stay sober and thus begin to work on her ongoing mental health issues. 08/11/20-patient is doing better denies any suicidal thoughts denies homicidal thoughts we will continue to monitor for any withdrawal symptoms. Patient is agreeable to current medication. Keflex was started for UTI 08/10/20- DAVID LEIVA is a 25-year-old F who currently lives in is currently homeless, with a significant history of methamphetamine abuse, cannabis use and depression, and was admitted on 08/10/20 01:11 on a 201 voluntary commitment for worsening depression with suicidal thoughts, anxiety significant panic as well as status post intentional overdose on Risperdal.. On review patient denies any associated suicide attempts. Current impression is mood disorder unspecified patient is probably stress secondary to multiple psychosocial stressors and consistent use of methamphetamine as well as cannabinoids. Patient also reports difficulty with sleep and patient reports that Lexapro helped her in the past. At this time the patient is admitted to the [address] [place] [address] inpatient mental health unit she is on every 15 minute checks behavior and suicide precautions included for safety the patient will participate in groups recreational milieu therapies will be offered additional in individual and family sessions as clinically appropriate. (1) Suicidal ideation: Resolved patient denies suicidal ideation here on the unit. (2) Major depression, recurrent: Unclear if patient has depression secondary to substance use but has a history of depression in the past and reports benefit from Lexapro we will restart Lexapro discussed benefits as well as risks and side effects of antidepressant such as serotonin reuptake inhibitors. We will start her milligrams of Lexapro daily (3) Anxiety: She reported taking the Risperdal in response to significant panic attack which she had prior to admission patient reports a long history of anxiety but denies any panic attacks and severe as the one she had the other day". Will start Vistaril 25 mg as needed 3 times daily will have 50 mg at nighttime will avoid anything stronger given patient's history of addictions patient reports BuSpar in the past unclear if it will be beneficial at this time. (4) Methamphetamine dependence, continuous: Patient has a significant history of methamphetamine use continues patient reports this is my favorite and I do not do enough" patient is open to going to rehab the patient's use history suggest problematic substance use brief intervention was offered and accepted intervention was greater than 5 minutes in length and included assessing patient's readiness to quit advised on how to reduce abstain and to set a specific goal for this hospitalization pediatric social worker with ophthalmic assistant anticipating barriers to sobriety and problem solving solutions to those problems while arranging for referral to appropriate treatment. Inventory Assets Strengths: verbal, open to treatment Needs: Rehab Risk Factors Assessment Male: No Do You Have Access To A Gun?: No Health Problems: No Mental Health Diagnoses: Yes Protective Factors Assessment Employed: No Good Rapport with Provider: Yes Interval History Chief Complaint "[I think I am doing better"]". Review of Systems Sleep Information Total Hours of Sleep: 6.5 Sleep Comments: admitted this shift. Meal Information Percent Meal Consumed - Breakfast: 60 Percent Meal Consumed - Lunch: 90 Percent Meal Consumed - Dinner: 60 Subjective Subjective Patient was seen & assessed and interval progress reviewed with treatment team nursing and social work. Patient is active in groups. Patient reports motivation to go to rehab. Patient does report ongoing anxiety and some difficulty with sleep. However she feels trazodone has helped and would like to continue it. She denies suicidal thoughts or homicidal thoughts. She denies auditory or visual hallucinations. There is no evidence of response to internal stimuli. She really spending most of her time working on her coping strategies and planning on abstinence. Physical Exam Psychiatric Orientation: alert, oriented x 3, oriented to person, oriented to place and cooperative Apperance: appropriately dressed Eye Contact: good eye contact Motor Behavior: steady gait and station Speech: normal rate/rhythm/volume of speech Affect: + anxious affect Mood: + anxious mood Thought Process: goal directed thought process and clear/coherent thought process; no flight of ideas Thought Content: not paranoid, no compulsions and no delusions Suicidal Thoughts: denies suicidal thoughts Homicidal Thoughts: denies homicidal thoughts Hallucinations: no auditory hallucinations and no visual hallucinations Cognition: recent memory grossly intact, remote memory grossly intact, attention grossly intact and language grossly intact Estimated Intelligence: consistent with education level Insight: + limited insight Judgement: + limited judgement Vital Signs (Past 24 Hours) Last Vital Signs Temp 36.6 C 08/12/20 06:00 Pulse 76 08/12/20 06:44 Resp 16 08/12/20 06:00 BP 139/86 08/12/20 06:44 Pulse Ox 99 08/10/20 01:57 Physical exam was performed by Dr. Zaldivar in the ED on 08/09/2020. For the purpose of medical clearance accepting the physical exam as correct and adequate for the purpose of the inpatient physical exam. Results & Data ([facility]) Laboratory Results Laboratory Results - last 24 hr 08/09/20 21:32 U Amphetamines Confirm 665 H U Methamphetamin Confrm 5620 H U Marijuana THC Carboxy 91 H Drug Screen Comment SEE NOTE Current Inpatient Medications Current Inpatient Medications: Current Inpatient Medications Acetaminophen (Acetaminophen 325 Mg Tab) 650 mg PO Q4H PRN PRN Reason: Headache or Minor Fever Stop: 09/09/20 01:53 Last Admin: 08/12/20 11:00 Dose: 650 mg Documented by: Al Hydrox/Mg Hydrox/Simethicone (Aluminum/Magnesium Susp 30 Ml Udc) 30 ml PO Q4H PRN PRN Reason: GI Upset Stop: 09/09/20 01:53 Bismuth Subsalicylate (Bismuth Subsalicylate Liqd 236 Ml) 15 ml PO PRN PRN PRN Reason: Loose Stool Stop: 09/09/20 01:53 Cephalexin HCl (Cephalexin 500 Mg Cap) 500 mg PO BID GARY Stop: 08/16/20 13:14 Last Admin: 08/12/20 09:11 Dose: 500 mg Documented by: Escitalopram Oxalate (Escitalopram Oxalate 10 Mg Tab) 10 mg PO QAM GARY Stop: 09/10/20 08:59 Last Admin: 08/12/20 09:11 Dose: 10 mg Documented by: Hydroxyzine HCl (Hydroxyzine Hcl 25 Mg Tab) 25 mg PO Q4H PRN PRN Reason: Anxiety Stop: 09/09/20 01:53 Hydroxyzine HCl (Hydroxyzine Hcl 25 Mg Tab) 50 mg PO HS GARY Stop: 09/09/20 21:59 Last Admin: 08/11/20 21:12 Dose: 50 mg Documented by: Magnesium Hydroxide (Magnesium Hydroxide Susp 30 Ml Udc) 30 ml PO DAILY PRN PRN Reason: Constipation Stop: 09/09/20 01:53 Miscellaneous (Remove Nicoderm Patch) 1 ea N/A DAILY@0859 [facility] Stop: 09/09/20 08:58 Last Admin: 08/12/20 09:14 Dose: Not Given Documented by: Nicotine (Nicotine 21 Mg/24 Hr Tdsy) 21 mg TD QAM G[facility] Stop: 09/09/20 08:59 Last Admin: 08/12/20 09:14 Dose: 21 mg Documented by: Sodium Chloride (Sodium Chloride 0.65% Na Soln 45 Ml ([place])) 1 - 2 sprays NA PRN PRN PRN Reason: Nasal Dryness/Congestion Stop: 09/09/20 01:53 Trazodone HCl (Trazodone Hcl 50 Mg Tab) 50 mg PO HS GARY Stop: 09/09/20 21:59 Last Admin: 08/11/20 21:12 Dose: 50 mg Documented by: Mental Health & Subst Abuse Tx Psychiatrist Name of Psychiatrist: [facility] Psychiatrist's Date of Appointment with Psychiatrist: 08/12/20 Psychiatric Appointment Comment: [facility] [place] [address] Therapist Name of Therapist: none Post Discharge Appointments Primary Care Physician Name Of Family Doctor: Erin Mixon Primary Care Provider Appointment Comment: [address] [place] [address] [place] [address] Contact Information Discharge Discharge Address: [address] [place] [id number]
[2020-08-12] MEDS: traZODone HCL 50 MG TAB PO SCH (20:53)
[2020-08-12] MEDS: hydrOXYzine HCl 25 MG TAB PO SCH (20:53)
[2020-08-13] MEDS: cephALEXin 500 MG CAP PO SCH ×2 (09:07→21:19)
[2020-08-13] MEDS: ESCITALOPRAM OXALATE 10 MG TAB PO SCH (09:07)
[2020-08-13] MEDS: NICOTINE 21 MG/24 HR TDSY TD SCH (09:12)
[2020-08-13] MEDS ORDERED: hydrOXYzine HCl 25 MG TAB PO PRN (09:30)
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
[2020-08-13] MEDS: ARIPiprazole 5 MG TAB PO SCH (12:31)
[2020-08-13] MEDS: traZODone HCL 50 MG TAB PO SCH (21:18)
[2020-08-14] MEDS: cephALEXin 500 MG CAP PO SCH ×2 (08:03→22:01)
[2020-08-14] MEDS: ESCITALOPRAM OXALATE 10 MG TAB PO SCH (08:03)
[2020-08-14] MEDS: ARIPiprazole 5 MG TAB PO SCH (08:03)
[2020-08-14] MEDS: NICOTINE 21 MG/24 HR TDSY TD SCH (08:03)
[2020-08-14 08:34] LABS: Cholesterol 172 mg/dl (0-200); Glucose Fasting 100 mg/dl (70-99); Triglycerides 130 mg/dl (0-150); VLDL Cholesterol 26 mg/dl
[2020-08-14 08:39] LABS: Chol HDL Ratio 5; HDL Cholesterol 37 mg/dl; LDL Cholesterol Calculated 109 mg/dl
--- NOTE | 2020-08-14 11:26 | Psychiatric Progress Note ---
Date of Service August 14, 2020 Impression / Recommendations Impression DAVID LEIVA is a 25-year-old F with a significant history of methamphetamine abuse, cannabis use and depression, and was admitted on 08/10/20 01:11 on a 201 voluntary commitment for worsening depression with suicidal thoughts, anxiety significant panic as well as status post intentional overdose on Risperdal.(1 extra). 08/13/20--reviewed. improved, tolerating Abilify augmentation for depression. Psychiatrically stable for discharge to rehab when bed available. No psychosis on MSE. (1) Major depression, recurrent: 08/14/20--continue current meds and treatment plan. Psychiatrically stable for discharge to rehab when bed available. 08/13/20--reviewed care by Dr. Acevdeo. Risks/benefits/alternatives reviewed re: current medication including but not limited to FDA warnings re: SI with SSRI. She did not like Risperdal side effects and believes making period irregular but was amenable to a trial of Abilify for augmentation for depression. Risks/benefits/alternatives were reviewed re: antipsychotics for mood and/or psychosis. Discussion included but was not limited to metabolic side effects, risks of TD and suicidal thoughts. There were no abnormal motor movements at baseline. Fasting glucose and lipid panel ordered for baseline monitoring. 08/12/2020-she continues to improve is able to be more accepting of the fact that she does require rehab she is open to rehab she denies any suicidal ideation or homicidal ideation the goal for treatment is to transition patient to rehabilitation to enable her stay sober and thus begin to work on her ongoing mental health issues. 08/11/20-patient is doing better denies any suicidal thoughts denies homicidal thoughts we will continue to monitor for any withdrawal symptoms. Patient is agreeable to current medication. Keflex was started for UTI Unclear if patient has depression secondary to substance use but has a history of depression in the past and reports benefit from Lexapro we will restart Lexapro discussed benefits as well as risks and side effects of antidepressant such as serotonin reuptake inhibitors. We will start her milligrams of Lexapro daily (2) Anxiety: --reviewed Dr. Acevedo--She reported taking the Risperdal in response to significant panic attack which she had prior to admission patient reports a long history of anxiety but denies any panic attacks and severe as the one she had the other day". Will start Vistaril 25 mg as needed 3 times daily will have 50 mg at nighttime will avoid anything stronger given patient's history of addictions patient reports BuSpar in the past unclear if it will be beneficial at this time. (3) Methamphetamine dependence, continuous: 08/13/20--reviewed on admission per Dr. Acevedo Patient has a significant history of methamphetamine use continues patient reports this is my favorite and I do not do enough" patient is open to going to rehab the patient's use history suggest problematic substance use brief intervention was offered and accepted intervention was greater than 5 minutes in length and included assessing patient's readiness to quit advised on how to reduce abstain and to set a specific goal for this hospitalization social media marketer with ophthalmic surgical assistant anticipating barriers to sobriety and problem solving solutions to those problems while arranging for referral to appropriate treatment. Reiterated brief intervention as above and she remains amenable to rehab. Inventory Assets Strengths: verbal, open to treatment Needs: Rehab Risk Factors Assessment Male: No Do You Have Access To A Gun?: No Health Problems: No Mental Health Diagnoses: Yes Protective Factors Assessment Employed: No Good Rapport with Provider: Yes Interval History Chief Complaint "I'm ready for rehab, fellow addicts understand more". Review of Systems Sleep Information Total Hours of Sleep: 7.5 Sleep Comments: admitted this shift. Meal Information Percent Meal Consumed - Breakfast: 95 Percent Meal Consumed - Lunch: 75 Percent Meal Consumed - Dinner: 95 Subjective Subjective Patient was seen & assessed and interval progress reviewed with nursing and social work. Has noticed some minimal tremor when eating since first dose of Abilify, a little tired in the afternoon but not unusual for patient. "What I thought were voices are more my thoughts mumbling" and are not present this am. Has been cooperative and engaged in group. Presents as young for age but motivated. Physical Exam Psychiatric Orientation: alert, oriented x 3 and cooperative Apperance: appropriately dressed Eye Contact: good eye contact Motor Behavior: steady gait and station Speech: normal rate/rhythm/volume of speech Affect: euthymic affect Mood: + anxious mood Thought Process: goal directed thought process Thought Content: not paranoid, no compulsions and no delusions Suicidal Thoughts: denies suicidal thoughts Homicidal Thoughts: denies homicidal thoughts Hallucinations: no auditory hallucinations and no visual hallucinations Cognition: recent memory grossly intact, remote memory grossly intact, attention grossly intact and language grossly intact Estimated Intelligence: consistent with education level Vital Signs (Past 24 Hours) Last Vital Signs Temp 36.5 C 08/14/20 06:37 Pulse 72 08/14/20 06:37 Resp 16 08/14/20 06:37 BP 116/75 08/14/20 06:37 Pulse Ox 99 08/10/20 01:57 Results & Data ([facility]) Laboratory Results Laboratory Results - last 24 hr 08/14/20 07:55 Fasting Glucose 100 H Triglycerides 130 Cholesterol 172 LDL Cholesterol, Calc 109 VLDL Cholesterol, Calc 26 HDL Cholesterol 37 Cholesterol/HDL Ratio 5 Current Inpatient Medications Current Inpatient Medications: Current Inpatient Medications Acetaminophen (Acetaminophen 325 Mg Tab) 650 mg PO Q4H PRN PRN Reason: Headache or Minor Fever Stop: 09/09/20 01:53 Last Admin: 08/12/20 20:33 Dose: 650 mg Documented by: Al Hydrox/Mg Hydrox/Simethicone (Aluminum/Magnesium Susp 30 Ml Udc) 30 ml PO Q4H PRN PRN Reason: GI Upset Stop: 09/09/20 01:53 Aripiprazole (Aripiprazole 5 Mg Tab) 2.5 mg PO QAM GARY Stop: 09/12/20 09:44 Last Admin: 08/14/20 08:03 Dose: 2.5 mg Documented by: Bismuth Subsalicylate (Bismuth Subsalicylate Liqd 236 Ml) 15 ml PO PRN PRN PRN Reason: Loose Stool Stop: 09/09/20 01:53 Cephalexin HCl (Cephalexin 500 Mg Cap) 500 mg PO BID [facility] Stop: 08/16/20 13:14 Last Admin: 08/14/20 08:03 Dose: 500 mg Documented by: Escitalopram Oxalate (Escitalopram Oxalate 10 Mg Tab) 10 mg PO QAM GARY Stop: 09/10/20 08:59 Last Admin: 08/14/20 08:03 Dose: 10 mg Documented by: Hydroxyzine HCl (Hydroxyzine Hcl 25 Mg Tab) 25 mg PO Q4H PRN PRN Reason: Anxiety Stop: 09/09/20 01:53 Hydroxyzine HCl (Hydroxyzine Hcl 25 Mg Tab) 50 mg PO HS PRN PRN Reason: Sleep Stop: 09/12/20 09:29 Magnesium Hydroxide (Magnesium Hydroxide Susp 30 Ml Udc) 30 ml PO DAILY PRN PRN Reason: Constipation Stop: 09/09/20 01:53 Miscellaneous (Remove Nicoderm Patch) 1 ea N/A DAILY@0859 [facility] Stop: 09/09/20 08:58 Last Admin: 08/14/20 08:29 Dose: 1 ea Documented by: Nicotine (Nicotine 21 Mg/24 Hr Tdsy) 21 mg TD QAM GARY Stop: 09/09/20 08:59 Last Admin: 08/14/20 08:03 Dose: 21 mg Documented by: Sodium Chloride (Sodium Chloride 0.65% Na Soln 45 Ml ([place])) 1 - 2 sprays NA PRN PRN PRN Reason: Nasal Dryness/Congestion Stop: 09/09/20 01:53 Trazodone HCl (Trazodone Hcl 50 Mg Tab) 50 mg PO HS GARY Stop: 09/09/20 21:59 Last Admin: 08/13/20 21:18 Dose: 50 mg Documented by: Mental Health & Subst Abuse Tx Psychiatrist Name of Psychiatrist: [facility] Psychiatrist's Date of Appointment with Psychiatrist: 08/12/20 Psychiatric Appointment Comment: [facility] [place] [address] Therapist Name of Therapist: none Post Discharge Appointments Primary Care Physician Name Of Family Doctor: Erin Mixon Primary Care Provider Appointment Comment: [address] [place] [address] [place] [address] Contact Information Discharge Discharge Address: [address] [place] [address] (1) Major depression, recurrent Active/Remission status: currently active Major depression episode severity: severe Psychotic features: with psychotic features Qualified Code(s): F33.3 - Major depressive disorder, recurrent, severe with psychotic symptoms
[2020-08-14] MEDS: traZODone HCL 50 MG TAB PO SCH (22:01)
[2020-08-15] MEDS: NICOTINE 21 MG/24 HR TDSY TD SCH (08:39)
[2020-08-15] MEDS: ARIPiprazole 5 MG TAB PO SCH (08:39)
[2020-08-15] MEDS: cephALEXin 500 MG CAP PO SCH (08:40)
[2020-08-15] MEDS: ESCITALOPRAM OXALATE 10 MG TAB PO SCH (08:40)
--- NOTE | 2020-08-15 15:06 | Discharge Summary ---
Date of Service August 15, 2020 History of Present Illness The patient is a 25-year-old female who presents voluntarily after an intentional Risperdal overdose. The patient is on Risperdal for psychosis. She was trying to hurt herself by a taking extra today. She states that she thinks she only took 1 extra tablet. No alcohol or other meds ingested. It made her feel somewhat dizzy and sort of out of it. Patient reported immediately she took it regretting the episode. Patient admitted to lyric writer that it was an old prescription and the last time he had been prescribed Risperdal was in October 2019. She this was at the time she left [place]. Then she has not sought psychiatric services. Ported worsening anxiety in the past several months especially more intense in the past 2 weeks with her current situation of homelessness moving from one house to the other" patient decided to fill all prescription and was taking the medication as needed however she reported having a severe panic attack and intentionally took more than 1 pill to help with the panic attack. She then felt dizzy and out of sorts" Patient was interviewed by case management in the ED the following history noted below was obtained; Per Case Management ED Psych by Fransico Ramirez Met with the patient to complete MH Brief Assessment. The patient reports she recently moved in with her father after losing her job. The patient reports she took extra Risperdal (2 at a time instead of as prescribed) to try to sleep but I really didnt want to wake up. The patient reports she doesnt want to but doesnt want things to continue. The patient reports she had a really bad anxiety attack after finding out her daughter was adopted recently and her birthday is coming up in August. The patient reports she is a meth user (last used last night) and needs help for her mental health and addiction. The patient admits she was trying to hurt herself when she took her extra Risperdal. The patient reports she was inpatient in [place] and diagnosed with psychotic disorder, depression and anxiety, but she feels she has major depression. Medical clearance explained. When this lyric writer met with patient today she reported feeling depressed and hopeless, she denied active suicidal ideation in the hospital was not sure what she would do if she left. She reported ongoing use of methamphetamine and cannabis." I do not get as much as I can use" patient reported also being anxious to go back into rehab." I need to get stable and, my own place and my own car, I need a job" Patient denies hallucinations denies homicidal ideation no evidence of response to internal stimuli. Physical Exam Mental Examination See admission H&P and DOD summary. Vital Signs (Past 24 Hours) Last Vital Signs Temp 36.6 C 08/15/20 06:39 Pulse 83 08/15/20 06:40 Resp 16 08/15/20 06:39 BP 122/83 08/15/20 06:40 Pulse Ox 99 08/10/20 01:57 Physical exam was performed by Dr. Zaldivar in the ED on 08/09/2020. For the purpose of medical clearance accepting the physical exam as correct and adequate for the purpose of the inpatient physical exam. Principal Diagnosis major depressive disorder, recurrent Psychiatric Data See daily stay summary. In short, safety was maintained and the patient was cooperative with care. Medication changes included starting Lexapro and trazodone then augmenting with low dose Abilify and they tolerated this with only minor sedation. A safety plan was completed prior to discharge. Day of Discharge Assessment Today the patient voices readiness for discharge. They note improvement in mood and deny thoughts to harm self or others. Thoughts remain organized and they are improved from admission. There is no evidence of psychosis. They agree to take mediations as prescribed and keep follow-up appointments. They are stable for discharge to residential rehab. Transition of Care Transition Of Care Record: was reviewed with the patient Advance Directives Advance Directives Information Provided: Yes Advance Directives: No Mental Health Advance Directive: No Advance Directives on File: No Living Will: No Power of Drug Regulatory Affairs Specialist: No Advance Directives Reason:: Declines as Mental Health Visit. Risk Factors Assessment Male: No Do You Have Access To A Gun?: No Health Problems: No Mental Health Diagnoses: Yes Protective Factors Assessment Employed: No Good Rapport with Provider: Yes Tobacco Cessation at Discharge Tobacco Cessation Medication Prescribed at Discharge: Not Applicable/Non-Smoker Total Time Total Time Spent: Greater Than 30 Minutes Total Time Includes: Examination of the patient, Discharge Planning and Medication Reconciliation Discharge Data Lab Results 08/09/20 08/09/20 08/09/20 21:32 21:32 21:32 WBC RBC Hgb Hct MCV MCH MCHC RDW Std Deviation RDW Coeff of Ismael Plt Count MPV Immature Gran % (Auto) Neut % (Auto) Lymph % (Auto) [place] % (Auto) Eos % (Auto) Baso % (Auto) Neut # (Auto) Lymph # (Auto) [place] # (Auto) Eos # (Auto) Baso # (Auto) Immature Gran # (Auto) Sodium Potassium Chloride Carbon Dioxide Anion Gap BUN Creatinine Est Cr Clr Drug Dosing Est GFR ( Amer) Est GFR (Non-Af Amer) BUN/Creatinine Ratio Glucose Fasting Glucose Calcium Total Bilirubin AST ALT Alkaline Phosphatase Total Protein Albumin Globulin Albumin/Globulin Ratio Triglycerides Cholesterol LDL Cholesterol, Calc VLDL Cholesterol, Calc HDL Cholesterol Cholesterol/HDL Ratio TSH Urine Color Yellow Urine Appearance Clear Urine pH 7.0 Ur Specific [place] 1.015 Urine Protein Negative Urine Glucose (UA) Negative Urine Ketones Trace H Urine Blood Negative Urine Nitrite Positive A Urine Bilirubin Negative Urine Urobilinogen Negative Ur Leukocyte Esterase Negative Urine RBC 0-4 Urine WBC 5-10 H Ur Epithelial Cells 5-10 H Urine Bacteria 3+ H POC Ur Test NEG Salicylates Urine Opiates Screen Neg Ur Methadone, Qual Neg Acetaminophen Urine Barbiturates Neg Ur Phencyclidine (PCP) Neg U Amphetamines Confirm U Amphetamin/Meth Scrn Pos H U Methamphetamin Confrm MDMA (Ecstasy) Screen Neg U Benzodiazepines Scrn Neg Ur Cocaine Metabolite Neg U Marijuana (THC) Screen Pos H U Marijuana THC Carboxy Drug Screen Comment Ethyl Alcohol mg/dL COVID-19 Eval Order SARS-CoV-2, RNA, NAAT 08/09/20 08/09/20 08/09/20 21:32 21:39 21:39 WBC 14.06 H RBC 4.65 Hgb 13.5 Hct 40.3 MCV 86.7 MCH 29.0 MCHC 33.5 RDW Std Deviation 43.1 RDW Coeff of Ismael 13.6 Plt Count 472 H MPV 9.9 Immature Gran % (Auto) 0.1 Neut % (Auto) 67.4 Lymph % (Auto) 25.5 [place] % (Auto) 5.1 Eos % (Auto) 1.6 Baso % (Auto) 0.3 Neut # (Auto) 9.47 H Lymph # (Auto) 3.59 H [place] # (Auto) 0.72 H Eos # (Auto) 0.22 Baso # (Auto) 0.04 Immature Gran # (Auto) 0.02 Sodium 139 Potassium 3.9 Chloride 106 Carbon Dioxide 28 Anion Gap 5.0 BUN 6 L Creatinine 0.76 Est Cr Clr Drug Dosing 118.0 Est GFR ( Amer) 127.2 Est GFR (Non-Af Amer) 109.8 BUN/Creatinine Ratio 8.2 L Glucose 96 Fasting Glucose Calcium 9.7 Total Bilirubin 0.2 AST 8 L ALT 23 Alkaline Phosphatase 94 Total Protein 8.0 Albumin 3.8 Globulin 4.2 H Albumin/Globulin Ratio 0.9 Triglycerides Cholesterol LDL Cholesterol, Calc VLDL Cholesterol, Calc HDL Cholesterol Cholesterol/HDL Ratio TSH 1.210 Urine Color Urine Appearance Urine pH Ur Specific [place] Urine Protein Urine Glucose (UA) Urine Ketones Urine Blood Urine Nitrite Urine Bilirubin Urine Urobilinogen Ur Leukocyte Esterase Urine RBC Urine WBC Ur Epithelial Cells Urine Bacteria POC Ur Test Salicylates Urine Opiates Screen Ur Methadone, Qual Acetaminophen Urine Barbiturates Ur Phencyclidine (PCP) U Amphetamines Confirm 665 H U Amphetamin/Meth Scrn U Methamphetamin Confrm 5620 H MDMA (Ecstasy) Screen U Benzodiazepines Scrn Ur Cocaine Metabolite U Marijuana (THC) Screen U Marijuana THC Carboxy 91 H Drug Screen Comment SEE NOTE Ethyl Alcohol mg/dL COVID-19 Eval Order SARS-CoV-2, RNA, NAAT 08/09/20 08/09/20 08/09/20 21:39 21:39 21:40 WBC RBC Hgb Hct MCV MCH MCHC RDW Std Deviation RDW Coeff of Ismael Plt Count MPV Immature Gran % (Auto) Neut % (Auto) Lymph % (Auto) [place] % (Auto) Eos % (Auto) Baso % (Auto) Neut # (Auto) Lymph # (Auto) [place] # (Auto) Eos # (Auto) Baso # (Auto) Immature Gran # (Auto) Sodium Potassium Chloride Carbon Dioxide Anion Gap BUN Creatinine Est Cr Clr Drug Dosing Est GFR ( Amer) Est GFR (Non-Af Amer) BUN/Creatinine Ratio Glucose Fasting Glucose Calcium Total Bilirubin AST ALT Alkaline Phosphatase Total Protein Albumin Globulin Albumin/Globulin Ratio Triglycerides Cholesterol LDL Cholesterol, Calc VLDL Cholesterol, Calc HDL Cholesterol Cholesterol/HDL Ratio TSH Urine Color Urine Appearance Urine pH Ur Specific [place] Urine Protein Urine Glucose (UA) Urine Ketones Urine Blood Urine Nitrite Urine Bilirubin Urine Urobilinogen Ur Leukocyte Esterase Urine RBC Urine WBC Ur Epithelial Cells Urine Bacteria POC Ur Test Salicylates 3.6 Urine Opiates Screen Ur Methadone, Qual Acetaminophen < 2 L Urine Barbiturates Ur Phencyclidine (PCP) U Amphetamines Confirm U Amphetamin/Meth Scrn U Methamphetamin Confrm MDMA (Ecstasy) Screen U Benzodiazepines Scrn Ur Cocaine Metabolite U Marijuana (THC) Screen U Marijuana THC Carboxy Drug Screen Comment Ethyl Alcohol mg/dL < 3.0 COVID-19 Eval [facility] SARS-CoV-2, RNA, NAAT 08/09/20 08/14/20 21:40 07:55 WBC RBC Hgb Hct MCV MCH MCHC RDW Std Deviation RDW Coeff of Ismael Plt Count MPV Immature Gran % (Auto) Neut % (Auto) Lymph % (Auto) [place] % (Auto) Eos % (Auto) Baso % (Auto) Neut # (Auto) Lymph # (Auto) [place] # (Auto) Eos # (Auto) Baso # (Auto) Immature Gran # (Auto) Sodium Potassium Chloride Carbon Dioxide Anion Gap BUN Creatinine Est Cr Clr Drug Dosing Est GFR ( Amer) Est GFR (Non-Af Amer) BUN/Creatinine Ratio Glucose Fasting Glucose 100 H Calcium Total Bilirubin AST ALT Alkaline Phosphatase Total Protein Albumin Globulin Albumin/Globulin Ratio Triglycerides 130 Cholesterol 172 LDL Cholesterol, Calc 109 VLDL Cholesterol, Calc 26 HDL Cholesterol 37 Cholesterol/HDL Ratio 5 TSH Urine Color Urine Appearance Urine pH Ur Specific [place] Urine Protein Urine Glucose (UA) Urine Ketones Urine Blood Urine Nitrite Urine Bilirubin Urine Urobilinogen Ur Leukocyte Esterase Urine RBC Urine WBC Ur Epithelial Cells Urine Bacteria POC Ur Test Salicylates Urine Opiates Screen Ur Methadone, Qual Acetaminophen Urine Barbiturates Ur Phencyclidine (PCP) U Amphetamines Confirm U Amphetamin/Meth Scrn U Methamphetamin Confrm MDMA (Ecstasy) Screen U Benzodiazepines Scrn Ur Cocaine Metabolite U Marijuana (THC) Screen U Marijuana THC Carboxy Drug Screen Comment Ethyl Alcohol mg/dL COVID-19 Eval Order SARS-CoV-2, RNA, NAAT NEGATIVE Hospital Course (1) Major depression, recurrent: 08/14/20--continue current meds and treatment plan. Psychiatrically stable for discharge to rehab when bed available. 08/13/20--reviewed care by Dr. Buckner Risks/benefits/alternatives reviewed re: current medication including but not limited to FDA warnings re: SI with SSRI. She did not like Risperdal side effects and believes making period irregular but was amenable to a trial of Abilify for augmentation for depression. Risks/benefits/alternatives were reviewed re: antipsychotics for mood and/or psychosis. Discussion included but was not limited to metabolic side effects, risks of TD and suicidal thoughts. There were no abnormal motor movements at baseline. Fasting glucose and lipid panel ordered for baseline monitoring. 08/12/2020-she continues to improve is able to be more accepting of the fact that she does require rehab she is open to rehab she denies any suicidal ideation or homicidal ideation the goal for treatment is to transition patient to rehabilitation to enable her stay sober and thus begin to work on her ongoing mental health issues. 08/11/20-patient is doing better denies any suicidal thoughts denies homicidal thoughts we will continue to monitor for any withdrawal symptoms. Patient is agreeable to current medication. Keflex was started for UTI Unclear if patient has depression secondary to substance use but has a history of depression in the past and reports benefit from Lexapro we will restart Lexapro discussed benefits as well as risks and side effects of antidepressant such as serotonin reuptake inhibitors. We will start her milligrams of Lexapro daily (2) Anxiety: --reviewed Dr. Acevedo--She reported taking the Risperdal in response to significant panic attack which she had prior to admission patient reports a long history of anxiety but denies any panic attacks and severe as the one she had the other day". Will start Vistaril 25 mg as needed 3 times daily will have 50 mg at nighttime will avoid anything stronger given patient's history of addictions patient reports BuSpar in the past unclear if it will be beneficial at this time. (3) Methamphetamine dependence, continuous: 08/13/20--reviewed on admission per Dr. Acevedo Patient has a significant history of methamphetamine use continues patient reports this is my favorite and I do not do enough" patient is open to going to rehab the patient's use history suggest problematic substance use brief intervention was offered and accepted intervention was greater than 5 minutes in length and included assessing patient's readiness to quit advised on how to reduce abstain and to set a specific goal for this hospitalization social welfare administrator with broker assistant anticipating barriers to sobriety and problem solving solutions to those problems while arranging for referral to appropriate treatment. Reiterated brief intervention as above and she remains amenable to rehab. Mental Health & Subst Abuse Tx Psychiatrist Name of Psychiatrist: [facility] Psychiatrist's Date of Appointment with Psychiatrist: 08/12/20 Psychiatric Appointment Comment: [address] [place] [address] Therapist Name of Therapist: none Post Discharge Appointments Primary Care Physician Name Of Family Doctor: Erin Mixon Primary Care Provider Appointment Comment: [address] [place] [address] [place] [address] Smoking Cessation Counseling Tobacco Cessation Medication Prescribed at Discharge: Not Applicable/Non-Smoker Contact Information Discharge Discharge Address: [facility] Contact Information Comment: [address] [place] [address] Discharge Plan Discharge Items Patient Disposition: Drug & Alcohol Rehab Reason For Visit: MOOD D/O, NOS Discharge Diagnosis: major depressive disorder Condition on Discharge: Good Activity: Resume your previous activity Non-emergency contact: Primary Care Provider, Psychiatrist and Therapist Call non-emergency contact if: you have any medication questions and your symptoms worsen Follow-up/Referrals: PCP,NO [Primary Care Provider] - Diet: Regular Addtl Attending Provider Instructions: SPECIAL CARE INSTRUCTIONS: 1. Follow through with your scheduled aftercare appointments. If unable to keep an appointment, please call to reschedule. 2. Take your medication only as prescribed. Medication should not be changed or stopped without the approval of your doctor. In the event of worsening symptoms or concerns about side effects, contact your doctor immediately. 3. Utilize new healthy coping skills, anger management skills, and stress management skills learned during your hospitalization. Journal feelings and process them with a support person. Identify stressors or situations that may result in relapse, deterioration or inappropriate behaviors and develop a plan to deal with those issues. 4. If your coping skills are ineffective and you are in crisis, contact your outpatient providers for direction. If unable to reach your providers, please call the [facility] CRISIS LINE AT , go to the [facility] walk-in center at [address], [address], [place], or go to the closest Emergency Room. 5. Avoid alcohol and un-prescribed drugs. 6. You have been provided with the Mental Health Advance Directives Pamphlet for your review. AFTERCARE APPOINTMENTS: * Please call your insurance company prior to your scheduled appointment to confirm your aftercare providers are covered. Take your insurance information to your appointments. WHO TO CALL AND WHEN: Medical Emergencies: For questions or emergencies related to your hospital stay, please contact the Inpatient Behavioral Health Unit at [phone]. A emergency department clinician is on-call 15/10 for the Behavioral Health Unit for emergencies At any time you feel your situation is an emergency, you may also call 911 immediately. Pending Studies at Discharge: No Stand-Alone Forms: My [facility] Skilled Items Patient informed of condition?: Yes DNR: No Discharge Level of Care: Acute rehab Communicable Disease: No Discharge Prognosis: Improving Lines: None Urinary Catheter: No Admission Data Admit Date/Time: 08/10/20 01:11 Attending Provider: Geno Sparrow Admit Provider: Linh Johnson Primary Care Provider: PCP,NO Other Providers: Linh Johnson Coding Level of Care Code 89713 D/C day mgmt > 30 min Diagnoses Major depression, recurrent F33.3 Active/Remission status: currently active Major depression episode severity: severe Psychotic features: with psychotic features Anxiety F41.9 Methamphetamine dependence, continuous F15.20
== END 2020-08-15 16:15 | disposition alcohol treatment (31) | DRG 885 ==
LOC: ED 21:13 → 3S 08-10 01:11 → SUATTDRO 08-10 01:11 → 3S 08-10 01:37 → UNDODISIN 08-15 16:15